=== PATIENT | female | born 1945 | race Caucasian/White ===

== ENCOUNTER → 2016-11-24 | Outpatient (CLI) | payer MEDICARE, OTHER | LOC: RAD 11:05 | PROVIDERS: ATTEND Orthopaedic Surgery | DX: M25.511 Pain in right shoulder (principal); M19.011 Primary osteoarthritis, right shoulder | CPT/HCPCS: 73030 ==

== ENCOUNTER → 2016-12-07 | Outpatient (CLI) | payer MEDICARE, OTHER | LOC: RAD 12:58 | PROVIDERS: ATTEND Orthopaedic Surgery | DX: M25.511 Pain in right shoulder (principal); Z91.81 History of falling | CPT/HCPCS: 23350; 73040; Q9966 ==

== ENCOUNTER 2017-01-14 15:15 | Outpatient (RCR) | payer MEDICARE, OTHER ==
--- NOTE | 2016-12-25 15:20 | PT/OT/ST INITIAL EVALUATION ---
Department of Health and Human Services Form Approved [facility] Care Financing Administration OMB No. [id number] PLAN OF CARE/ASSESSMENT FOR OUTPATIENT REHABILITATION (Complete for Initial Claims Only) 1. PATIENT'S NAME Radha Berrios 2. ACC # [id number] 3. [facility] [id number] 4. PROVIDER NO. [id number] 5. TYPE: PT 6. PRIOR HOSPITALIZATION NA 7. PRIMARY DX Right rotator cuff tendonitis 8. SECONDARY DX Decreased ROM, weakness, and limited functional mobility. 9. ONSET DATE 11/20/2016 10. REFERRAL DATE 12/11/2016 11. SOC. DATE 12/18/2016 12. TIME OF EVAL 15:[address] Eugene Novak 13. CHARGES/UNITS 14. G CODES [id number] 15. PRIOR LEVEL OF FUNCTION; PERTINENT HISTORY (Prior therapy results, reason for referral.) S: Prior to therapy, the patient did consent to today's evaluation and treatment. The patient is a 71-year-old female referred to physical therapy by Dr. Novak to address right rotator cuff tendonitis. Mechanism of injury: The patient reports falling off a ladder 1.5 years ago while cleaning a closet in her home. The patient hit right shoulder on a basket while on the way down. The patient sought medical treatment for this injury and did see physical therapy at this time upon which she reported a reduction of her symptoms. Primary Complaint: Pain in right shoulder when completing self-care such as combing hair and getting dressed. Current level of function: The patient reports current level of function as fair. The patient is currently limited by pain when performing self-care and household activities. Therapy History: The patient did seek medical treatment and physical therapy treatment for initial shoulder injury 1-1/2 years ago. The patient does report that she had a reduction in pain and her symptoms upon completion of treatment, but since then symptoms have increased in the past 1-1/2 weeks, upon which she is now seeking current physical therapy treatment. Obstacles to delivery of care: Patient reports having an implanted metallic cardiac device, which contraindicates the use of ultrasound and electrical stimulation over the anterior shoulder. Relieving factors: Ice and rest. Pain level: Maximum not reported at this date. Current pain level 3/10. Aggravating factors: Abduction and internal rotation. Diagnostic testing: The patient is contraindicated from undergoing MRIs due to having an implanted metallic device for previous cardiac problems. The patient underwent a right shoulder fluoroscopy arthrography, upon which findings were normal. It was reported that there was no rotator cuff tears at this time upon review of this imaging. Past medical history: Includes arthritis, heart problems and high blood pressure. Current medications: Advil, antacids, Aleve, antihistamines, aspirin, atorvastatin, amlodipine and Sertraline. Patient's Goal: The patient's goals today are to perform self-care and household activities without pain. 16. INITIAL ASSESSMENT/SAFETY PRECAUTIONS/MEDICAL COMPLICATIONS (Level of function at start of care. Be specific, use objective measures, list problems.) O: APPEARANCE AND OBSERVATION: The patient is a pleasant, well-groomed female that presents with a mild forward head posture and guarding of right shoulder. PALPATION: Upon palpation the patient has hypertonicity in bilateral upper trapezius, levator scapulae, and also has positive palpation findings to supraspinatus tendon, the inferior posterior lateral corner of the acromion. SPECIAL TESTS: The patient tests positive for resisted abduction, resisted internal rotation, and negative Speed test. The patient also has posterior and inferior capsule stiffness. RANGE OF MOTION/FLEXIBILITY: Right shoulder flexion 154, left 160. Abduction right 114, left 165. External rotation right T3, left T5. Internal rotation right T7, left T7. STRENGTH: Shoulder flexion right 4-/5, left 4/5. Abduction right 3+/5, left 4/5. External rotation right 4-/5, left 4/5. Internal rotation right 4-/5, left 4/5. Elbow flexion 4+/5, left 4+/5, and elbow extension right 4+/5, left 4+/5. TODAY'S TREATMENT: Today's treatment consisted of initiation of home exercise program, patient education about current diagnosis and physical therapy treatment, therapeutic exercise and glenohumeral joint mobilizations, light traction to the glenohumeral joint, and the treatment ended with the use of a vasopneumatic device with cold and compression. 17. INITIAL POC: (Specify procedures, modalities, short and exterminator helper termite goals) A: Examination findings and special testing consistent with prior diagnosis of R rotator cuff tendonitis. PROGNOSIS: The patient has a good prognosis of therapy pending adherence to home exercise program and regular attendance in therapy. Skilled physical therapy services are needed for strengthening, increased range of motion, functional training, and pain relieving techniques in order to return to prior level of function. OUTCOME ASSESSMENT: The patient completed the QuickDASH today and reported a disability symptom score of 34%. INFORMED CONSENT: The diagnosis, prognosis, treatment plan, risks and expected outcomes were discussed with the patient. The patient did agree to today's established plan of care. SHORT TERM GOALS: 1. The patient will demonstrate compliance and independence with home exercise program in 1 week in order to maximize progress. 2. The patient will report a reduction in pain from 3/10 to 0/10 in 3 weeks in order to complete household tasks pain free. 3. The patient will demonstrate an increase in shoulder abduction strength from 3+/5 to 4+/5 in 4 weeks in order to perform self-care. 4. The patient will report a reduction in the QuickDASH from 34% to 15% in 6 weeks in order to complete lab manager pain free. P: Plan to treat patient 2 times a week for 6 weeks in order to address strength limitations, range of motion, pain, and functional limitations. Treatment to include modalities as appropriate to treat pain and inflammation, manual therapy techniques to address ROM and pain, therapeutic exercise targeting active range of motion and strength, passive range of motion, patient education and home exercise program. Thank for the referral of this patient today. 18. FREQUENCY 2 times per week 19. DURATION 6 weeks 20. FUNCTIONAL LEVEL (End of claim period) 21. PHYSICIAN SIGNATURE ? ON FILE OR ENTER HERE: 22. DATE: I certify the need for these services furnished under this plan of care and if for partial hospitalization. 23. CERTIFICATION FROM THROUGH FORM [id number]
[~2017-01-14 15:15] MED LIST: AMLO5TAB4 PO; ASPI-586 PO; ATOR40TA2 PO; CALC1TAB35 PO; CQ 10; CYCL1DRO2 OP; MULT-954 PO; OMG1KC PO; SERT50TA2 PO; VIT D 3
== END 2017-01-26 08:46 | disposition home or self-care (01) ==
LOC: PT 15:15
PROVIDERS: ATTEND Family Medicine
DX: M77.8 Other enthesopathies, not elsewhere classified (principal); M25.611 Stiffness of right shoulder, not elsewhere classified
CPT/HCPCS: 97016; 97110; 97140; 97161; G8984; G8985; G8986

== ENCOUNTER → 2017-02-01 | Outpatient (CLI) | payer MEDICARE, OTHER ==
--- NOTE | 2017-02-01 14:11 | Diagnostic Imaging Report ---
PROCEDURE: US Carotid Duplex Bilateral. TECHNIQUE: Multiple real-time grayscale images were obtained over the carotid arteries in various projections bilaterally. Additional duplex Doppler and color Doppler images were also obtained. INDICATION: Near-syncope. FINDINGS: Right neck: A mildly calcified atheromatous plaque is visible in the distal right common carotid artery. At the right carotid bifurcation and extending into the internal carotid artery is a calcified plaque. Mild disease is seen at the proximal external carotid artery. The ICA/CCA ratio is within normal limits at 1.09. There is no velocity jet or other indication of a hemodynamically significant stenosis of the internal or external carotid arteries. No tardus parvus waveform is identified. No velocity jet is seen. Right vertebral waveform is within normal limits. Left neck: Mild atheromatous changes are present at the distal common carotid artery. Velocity data do not indicate any hemodynamically significant stenosis of the internal or external carotid arteries. Left internal carotid artery is tortuous. Left vertebral waveform is within normal limits. IMPRESSION: 1. Mild atheromatous changes bilaterally, greater on the right. Negative for hemodynamically significant disease. Dictated by: Dictated on workstation # [id number]
== END ==
LOC: RAD 12:34
PROVIDERS: ATTEND Internal Medicine
DX: G45.1 Carotid artery syndrome (hemispheric) (principal)
CPT/HCPCS: 93880